=== PATIENT | male | born 1980 | race Caucasian/White ===

== ENCOUNTER 2020-01-26 15:33 | Emergency (ER) | payer SELFPAY ==
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
== END 2020-01-26 16:01 ==
LOC: MW.ED 15:33
DX: Z02.89 Encounter for other administrative examinations (principal)
CPT/HCPCS: 99282; 99283